=== PATIENT | male | born 1990 | race Caucasian/White ===

== ENCOUNTER 2016-04-23 22:51 | Emergency (ER) | payer OTHER ==
[~2016-04-23] VITALS: Ht 162.6 cm; Wt 67.0 kg
[2016-04-23 22:53] VITALS: BP 144/92; PULSE 80; TEMP 36.8; O2SAT 100; Ht 162.6 cm; Wt 67.0 kg
--- NOTE | 2016-04-24 01:03 | EMERGENCY ROOM VISIT NOTE ---
History First contact with patient: 23:08 Chief Complaint: RASH Stated Complaint: SKIN BLOTCHING, POSSIBLY FROM CHEMICAL EXPOSURE History of Present Illness The patient is a 26 year old male who presents to the Emergency Room with complaints of rash to the tip of his third and fifth finger and distal phalanx today. 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 He is unsure if he came in contact with a certain chemical. He also touched paint today. He has white spots to this area. 2 mm in diameter. Patient denies pain, numbness, tingling, chest pain, dyspnea, fever, chills. No new foods soaps or detergents. Review of Systems See HPI for pertinent positives & negatives. A total of 10 systems reviewed and were otherwise negative. Past Medical/Surgical History none Social History Smoking Status: Never Smoker Smokeless Tobacco Use: No Drug Use: none Occupation Status: [employer] student Physical Exam Vital Signs Date Time Temp Pulse Resp B/P Pulse Ox O2 Delivery O2 Flow Rate FiO2 04/23/16 22:53 36.8 80 19 144/92 100 Room Air Pain Rating (0-10): 0 Physical Exam VITALS: Vitals are noted on the nurse's note and reviewed by myself. Vital signs stable. GENERAL: Pleasant anxious-appearing male, in no acute distress, nondiaphoretic, well-developed well-nourished. SKIN: Capillary reflex less than 2 seconds. Left hand third and fifth digits distal aspect with 2 mm of white discoloration that was mostly removed using an alcohol wipe HEENT: Normocephalic. PERRLA. EOMI. Nares patent. Mucous membranes moist. MUSCULOSKELETAL: No gross musculoskeletal defects. NEURO: Patient was alert and oriented to person place and time. Normal sensation to light and sharp touch. No focal neurological deficits. Medical Decision & Procedures ED Course Prior records/ancillary studies reviewed. Triage Nursing notes reviewed. The patient's history was concerning for a rash. Differential diagnosis: Etiologies such as contact dermatitis, chemical exposure, paint, viral exanthem , urticaria, allergic reaction, Humphreys-Erik syndrome, toxic epidermal necrolysis, erythema multiforme, cellulitis, scabies, HSV, varicella, zoster, eczema, staph scalded skin syndrome, fungal infection, as well as others were entertained. Physical examination: As above ER treatment provided: Alcohol wipe On reassessment the patient felt better. Diagnostic interpretation by me: Deferred The etiology for the patient's rash appears to be consistent with white material to the distal fingers. Most of this was removed using an alcohol wipe. Patient was advised follow-up with health services on Thursday for recheck or here in the ER sooner if this spreads, pain, tingling, worsening signs or symptoms or as needed. Patient works in a lab with multiple chemicals. He states he always wears glasses and does not feel that he was exposed to a heavy amount of chemicals. He is unsure though if there was chemicals on the suit that he was wearing. I feel like this is less likely as there is minimal distribution of the white discoloration and that it was also removed using an alcohol wipe. He was advised to return to the ER for worsening signs or symptoms or as needed. By the evaluation outlined above emergent etiologies such as Humphreys-Erik syndrome, toxic epidermal necrolysis, erythema multiforme, cellulitis, scabies, HSV, varicella, zoster, staph scalded skin syndrome, urticaria, allergic reaction, as well as others were deemed relatively unlikely. The pt informed about the findings as listed above. All questions were answered and pleased with the treatment. Return instructions were outlined and the patient was discharged in stable condition. Referral: The patient was referred back to their primary care physician for follow-up in 2 -3 days for a recheck of the current condition. Medical Decision As above Impression Primary Impression: Rash Departure Information Dispostion Home / Self-Care Condition FAIR Forms WORK / SCHOOL INSTRUCTIONS, HOME CARE DOCUMENTATION FORM, IMPORTANT VISIT INFORMATION Patient Instructions My [facility] Additional Instructions Avoid exposure to any chemicals. Monitor the area. Follow-up health services in 2 days for recheck. Return to ER sooner for spreading of rash, fevers, pain, worsening signs or symptoms or as needed.
== END 2016-04-23 23:41 | disposition home or self-care (01) ==
LOC: C.EDB 22:52 → C.EDC 23:41
DX: R21 Rash and other nonspecific skin eruption (principal)

== ENCOUNTER 2016-09-08 08:44 | Emergency (ER) | payer OTHER ==
[~2016-09-08] VITALS: Ht 162.6 cm; Wt 67.2 kg
[2016-09-08 08:53] VITALS: TEMP 36.7; Ht 162.6 cm; Wt 67.2 kg
[2016-09-08] MEDS ORDERED: LORAZEPAM 1 MG TAB SL STA (09:13)
--- NOTE | 2016-09-08 09:14 | EMERGENCY ROOM VISIT NOTE ---
History Report prepared by Margarita: Mildred Mcdonald Under the Supervision of: Dr. Antonio Gutierrez D.O. First contact with patient: 08:59 Chief Complaint: MENTAL HEALTH EVALUATION Stated Complaint: SUICIDAL THOUGHTS History of Present Illness The patient is a 26 year old male who presents to the Emergency Room for a mental health evaluation. The patient states that for the past few weeks he has been experiencing worsening suicidal ideation. The patient states that he is currently thinking of a plan and would like inpatient help before he acts on the plan. The patient has a history of depression that began about 2 years ago after he had some dating issues. He has attempted suicided 3 times using a knife. He notes he does have a knife at home. The patient states that he is alone a lot recently and this is causing his mind to wander and his depression to worsen. The past month is when he began to notice the depression worsening. The patient denies any particular event that caused the depression to worsen. He states that he has been off his medications since the beginning of the year due to him thinking he was doing better and did not need them anymore. The patient was on Zoloft and another medication. The patient currently is in group therapy. He saw his therapist . He denies any other medical problems. The patient states that his last inpatient treatment was in [place] in October. He was still on his medication at that time. Source of History: patient Onset: few weeks [employer] Position: other (global) Quality: other (mental health evaluation) Timing: worsening Note: The patient admits to suicidal ideation. He admits to beginning to form a plan. The patient denies any other medical problems. Review of Systems See HPI for pertinent positives & negatives. A total of 10 systems reviewed and were otherwise negative. Past Medical & Surgical Medical Problems: (1) Depression Family History Family cardiac history Social History Smoking Status: Never Smoker Smokeless Tobacco Use: No Alcohol Use: none Drug Use: none Marital Status: single Housing Status: lives alone Occupation Status: [employer] Current/Historical Medications No Active Prescriptions or Reported Meds Allergies Coded Allergies: Cefaclor (Verified Allergy, Unknown, vomiting, 09/08/16) Physical Exam Vital Signs Date Time Temp Pulse Resp B/P (MAP) Pulse Ox O2 Delivery O2 Flow Rate FiO2 09/08/16 11:40 58 16 130/90 99 Room Air 09/08/16 08:53 36.7 67 18 139/97 99 Room Air Physical Exam GENERAL: Patient is awake, alert, mildly anxious but comfortable appearing. EYES: The conjunctivae are clear. The pupils are round and reactive. EARS, NOSE, MOUTH AND THROAT: The nose is without any evidence of any deformity. Mucous membranes are moist tongue is midline NECK: The neck is nontender and supple. RESPIRATORY: Normal respiratory effort is noted there is no evidence of wheezing rhonchi or rales CARDIOVASCULAR: Regular rate and rhythm noted there no murmurs rubs or gallops normal S1 normal S2 GASTROINTESTINAL: The abdomen is soft. Bowel sounds are present in all quadrants. Abdomen is nontender MUSCULOSKELETAL/EXTREMITIES: There is no evidence of gross deformity full range of motion is noted in the hips and shoulders SKIN: There is no obvious evidence of any rash. There are no petechiae, pallor or cyanosis noted. NEUROLOGIC: Patient is awake alert and oriented x3 strength is symmetric patellar reflexes are 2+ bilaterally PSYCH: Affect flat, makes poor eye contact. Patient's speech is normal. He currently admits to suicidal ideation with plan to cut himself. Medical Decision & Procedures Laboratory Results 09/08/16 09:28 Red Blood Count 6.07, Mean Corpuscular Volume 86.3, Mean Corpuscular Hemoglobin 29.7, Mean Corpuscular Hemoglobin Concent 34.4, Mean Platelet Volume 9.1, Neutrophils (%) (Auto) 43.3, Lymphocytes (%) (Auto) 43.4, Monocytes (%) (Auto) 9.5, Eosinophils (%) (Auto) 2.4, Basophils (%) (Auto) 0.4, Neutrophils # (Auto) 3.39, Lymphocytes # (Auto) 3.40, Monocytes # (Auto) 0.74, Eosinophils # (Auto) 0.19, Basophils # (Auto) 0.03 09/08/16 09:28 Test 09/08/16 09:28 09/08/16 09:40 White Blood Count 7.83 K/uL (4.8-10.8) Red Blood Count 6.07 M/uL (4.7-6.1) Hemoglobin 18.0 g/dL (14.0-18.0) Hematocrit 52.4 % (42-52) Mean Corpuscular Volume 86.3 fL (80-100) Mean Corpuscular Hemoglobin 29.7 pg (25-34) Mean Corpuscular Hemoglobin Concent 34.4 g/dl (32-36) Platelet Count 267 K/uL (130-400) Mean Platelet Volume 9.1 fL (7.4-10.4) Neutrophils (%) (Auto) 43.3 % Lymphocytes (%) (Auto) 43.4 % Monocytes (%) (Auto) 9.5 % Eosinophils (%) (Auto) 2.4 % Basophils (%) (Auto) 0.4 % Neutrophils # (Auto) 3.39 K/uL (1.4-6.5) Lymphocytes # (Auto) 3.40 K/uL (1.2-3.4) Monocytes # (Auto) 0.74 K/uL (0.11-0.59) Eosinophils # (Auto) 0.19 K/uL (0-0.5) Basophils # (Auto) 0.03 K/uL (0-0.2) RDW Standard Deviation 41.7 fL (36.4-46.3) RDW Coefficient of Variation 13.2 % (11.5-14.5) Immature Granulocyte % (Auto) 1.0 % Immature Granulocyte # (Auto) 0.08 K/uL (0.00-0.02) Anion Gap 7.0 mmol/L (3-11) Est Creatinine Clear Calc Drug Dose 83.8 ml/min Estimated GFR () 105.3 Estimated GFR (Non- 90.9 BUN/Creatinine Ratio 11.5 (10-20) Calcium Level 8.9 mg/dl (8.5-10.1) Total Bilirubin 0.4 mg/dl (0.2-1) Direct Bilirubin 0.1 mg/dl (0-0.2) Aspartate Amino Transf (AST/SGOT) 23 U/L (15-37) Alanine Aminotransferase (ALT/SGPT) 28 U/L (12-78) Alkaline Phosphatase 70 U/L (45-117) Total Protein 7.6 gm/dl (6.4-8.2) Albumin 4.1 gm/dl (3.4-5.0) Thyroid Stimulating Hormone (TSH) 6.850 uIu/ml (0.300-4.500) Ethyl Alcohol mg/dL < 3.0 mg/dl (0-3) Urine Color DK YELLOW Urine Appearance CLEAR (CLEAR) Urine pH 5.5 (4.5-7.5) Urine Specific [place] 1.029 (1.000-1.030) Urine Protein NEG (NEG) Urine Glucose (UA) NEG (NEG) Urine Ketones TRACE (NEG) Urine Occult Blood NEG (NEG) Urine Nitrite NEG (NEG) Urine Bilirubin NEG (NEG) Urine Urobilinogen NEG (NEG) Urine Leukocyte Esterase NEG (NEG) Urine Opiates Screen NEG (NEG) Urine Methadone, Qualitative NEG (NEG) Urine Barbiturates NEG (NEG) Urine Phencyclidine (PCP) Level NEG (NEG) Ur Amphetamine/Methamphetamine NEG (NEG) MDMA (Ecstasy) Screen NEG (NEG) Urine Benzodiazepines Screen NEG (NEG) Urine Cocaine Metabolite NEG (NEG) Urine Marijuana (THC) NEG (NEG) Laboratory results per my review. Medications Administered Medications (Trade) Dose Ordered Sig/Juan Jose Route Start Time Stop Time Status Last Admin Dose Admin Lorazepam (Ativan Tab) 0.5 mg NOW STAT SL 09/08/16 09:13 09/08/16 09:14 DC 09/08/16 09:38 0.5 MG ED Course 0906: The patient was evaluated in room A6. A complete history and physical examination were performed. 0913: Ativan Tab 0.5 mg IV. 1015: Bed search will begin. 1332: The patient will be transferred to [facility] [place] for inpatient treatment. Medical Decision Differential diagnosis: Etiologies such as mood disorder, infection, hypoglycemia, electrolyte abnormalities, cardiac sources, intracerebral event, toxicologic, neurologic, as well as others were entertained. Medication Reconciliation: I attest that I have personally reviewed the patient' s current medications list. Blood pressure screening: Patient was found to have normal blood pressure on screening and does not require follow-up. The patient is a 26-year-old male who presented to the emergency department for an evaluation of depression and suicidal ideation. The patient states that he has a history of depression and has had problems with suicidal ideation the past. The patient states that his symptoms have become worse recently. The patient was medically cleared in the emergency department. He was evaluated by the mental health delegate. He was felt to be a good candidate for inpatient treatment. Bed search was underway and the patient was accepted at [facility] for inpatient psychiatric care. The patient was agreeable with this plan. Transfer paperwork was filled out by myself. The patient was treated with Ativan in the emergency department. Impression Primary Impression: Depression Additional Impression: Suicidal ideation Scribe Attestation The scribe's documentation has been prepared under my direction and personally reviewed by me in its entirety. I confirm that the note above accurately reflects all work, treatment, procedures, and medical decision making performed by me. Departure Information Dispostion Mental Health Acute Care Prescriptions No Active Prescriptions or Reported Meds Referrals No Doctor, Assigned (PCP) Problem Qualifiers Primary Impression: Depression Depression Type: unspecified Qualified Codes: F32.9 - Major depressive disorder, single episode, unspecified
[2016-09-08 09:57] LABS: BASO % 0.4 %; BASO ABS # 0.03 K/uL (0-0.2); COMPLETE YES; EOS % 2.4 %; HEMATOCRIT 52.4 % (42-52); LYMPH % 43.4 %; MEAN CELL VOLUME 86.3 fL (80-100); MEAN CORPUSCULAR HEMOGLOBIN 29.7 pg (25-34); MEAN CORPUSCULAR HGB CONC 34.4 g/dl (32-36); MEAN PLATELET VOLUME 9.1 fL (7.4-10.4); MONO % 9.5 %; NEUT % 43.3 %; PLATELET COUNT 267 K/uL (130-400); RED BLOOD COUNT 6.07 M/uL (4.7-6.1); WHITE BLOOD COUNT 7.83 K/uL (4.8-10.8)
[2016-09-08 10:00] LABS: URINE APPEARANCE CLEAR (CLEAR); URINE BILIRUBIN NEG (NEG); URINE COLOR DK YELLOW; URINE NITRITE NEG (NEG); URINE PH 5.5 (4.5-7.5); URINE SPECIFIC GRAVITY 1.029 (1.000-1.030); UROBILINOGEN NEG (NEG)
[2016-09-08 10:11] LABS: MANUAL MICROSCOPIC REQUIRED? NO; REVIEW REQ? NO
[2016-09-08 10:14] LABS: CREATININE 1.1 mg/dl (0.60-1.40)
[2016-09-08 10:15] LABS: BUN/CREATININE RATIO 11.5 (10-20); CALCIUM 8.9 mg/dl (8.5-10.1); POTASSIUM 4.2 mmol/L (3.5-5.1)
[2016-09-08 10:25] LABS: THYROID STIMULATING HORMONE 6.85 uIu/ml (0.300-4.500)
[2016-09-08 10:27] LABS: BENZODIAZEPINE, URINE NEG (NEG); COCAINE,URINE NEG (NEG); PHENCYCLIDINE, URINE NEG (NEG)
[2016-09-08 18:39] VITALS: BP 133/78; PULSE 67; O2SAT 100
== END 2016-09-08 18:15 ==
LOC: C.EDB 08:45 → C.EDA 18:15
DX: F32.9 Major depressive disorder, single episode, unspecified (principal); R45.851 Suicidal ideations

== ENCOUNTER 2017-05-17 22:12 | Emergency (ER) | payer OTHER ==
[~2017-05-17] VITALS: Ht 162.6 cm; Wt 71.9 kg
[2017-05-17 22:14] VITALS: TEMP 36.9; Ht 162.6 cm; Wt 71.9 kg
[2017-05-17] MEDS ORDERED: QUET1TAB32 PO (22:27)
[2017-05-17] MEDS ORDERED: LTHSR/300 PO (22:27)
[2017-05-17] MEDS ORDERED: LEVO75TA5 PO (22:27)
[2017-05-17 22:49] LABS: BASO % 0.3 %; BASO ABS # 0.03 K/uL (0-0.2); EOS % 0.8 %; EOS ABS # 0.07 K/uL (0-0.5); HEMOGLOBIN 17.7 g/dL (14.0-18.0); IG# 0.17 K/uL (0.00-0.02); LYMPH % 30.2 %; LYMPH ABS # 2.81 K/uL (1.2-3.4); MEAN CORPUSCULAR HEMOGLOBIN 29.8 pg (25-34); MEAN CORPUSCULAR HGB CONC 34.7 g/dl (32-36); MEAN PLATELET VOLUME 8.8 fL (7.4-10.4); MONO % 9.9 %; MONO ABS # 0.92 K/uL (0.11-0.59); NEUT ABS # 5.32 K/uL (1.4-6.5); PLATELET COUNT 279 K/uL (130-400); RED CELL DISTRIBUTION WIDTH CV 13.5 % (11.5-14.5); RED CELL DISTRIBUTION WIDTH SD 42.2 fL (36.4-46.3); WHITE BLOOD COUNT 9.32 K/uL (4.8-10.8)
[2017-05-17 23:06] LABS: ALBUMIN 4.1 gm/dl (3.4-5.0); CALCIUM 8.7 mg/dl (8.5-10.1); CREATININE 1.07 mg/dl (0.60-1.40)
--- NOTE | 2017-05-17 23:10 | EMERGENCY ROOM VISIT NOTE ---
History Report prepared by Margarita: Adria Quarles Under the Supervision of: Dr. Bia Tse D.O. First contact with patient: 22:51 Chief Complaint: MENTAL HEALTH EVALUATION Stated Complaint: MENTAL HEALTH EVAL History of Present Illness The patient is a 27 year old male who presents to the Emergency Room with complaints of an episode of possible suicidal ideations occurring within the last two weeks. 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 He notes that he completely stopped taking his medication because they make him sleep too much and feel lethargic throughout the day, preventing him from doing his work. He reports that since he stopped taking his medication, he has had trouble sleeping. The patient states that he is in the emergency department tonight because his friends believed that he was suicidal. He notes that he is not suicidal, but reports that he is "isolating himself" because he does not feel like he is a positive influence in other's lives. He reports that he feels as though his friends feel that he is a positive influence, but states that what his friends think is not important because he does not feel the same. He notes that he does not have any current suicidal ideations, but reports that he has had suicidal ideations in the past. The patient states that a few years ago, he had suicidal ideations and held a knife to his wrist. He notes that he had two other suicidal ideations when he was in 7th grade where he held a knife to his throat. He denies having any homicidal ideations and hallucinations as well as headache, change in his bowel movements, as well as any other physical concerns. He reports that he has a therapist and is in group therapy, which has mildly helped. The patient states that he had an ear infection last month that has resolved. Source of History: patient Onset: within the last two weeks Position: other (global) Quality: other (possible suicidal ideations) Timing: other (an episode) Associated Symptoms: No headache Note: The patient states that he is "isolating himself." He denies any current suicidal ideations, homicidal ideations, and hallucinations. He also denies any change in his bowel movements. Review of Systems See HPI for pertinent positives & negatives. A total of 10 systems reviewed and were otherwise negative. Past Medical & Surgical Medical Problems: (1) Depression Family History Heart disease Hypertension Social History Smoking Status: Never Smoker Alcohol Use: none Drug Use: none Marital Status: single Housing Status: lives alone Occupation Status: [employer] student Current/Historical Medications Scheduled Levothyroxine Sodium (Levothyroxine Sodium), 75 MCG PO QAM [place] Carbonate ([place] Carbonate), 900 MG PO HS Quetiapine Fumarate (Seroquel), 50 MG PO HS Allergies Coded Allergies: Cefaclor (Verified Allergy, Unknown, vomiting, 05/17/17) Physical Exam Vital Signs Date Time Temp Pulse Resp B/P (MAP) Pulse Ox O2 Delivery O2 Flow Rate FiO2 05/18/17 01:41 62 16 144/93 98 Room Air 05/17/17 22:14 36.9 74 18 153/104 99 Room Air Physical Exam GENERAL: alert, well appearing, well nourished, no distress, non-toxic EYE EXAM: normal conjunctiva, PERRL and EOM's grossly intact OROPHARYNX: no exudate, no erythema, lips, buccal mucosa, and tongue normal and mucous membranes are moist NECK: supple, no nuchal rigidity, no adenopathy, non-tender LUNGS: Clear to auscultation. Normal chest wall mechanics HEART: no murmurs, S1 normal and S2 normal ABDOMEN: abdomen soft, non-tender, normo-active bowel sounds, no masses, no rebound or guarding. BACK: Back is symmetrical on inspection and there is no deformity, no midline tenderness, no CVA tenderness. SKIN: no rashes and no bruising UPPER EXTREMITIES: upper extremities are grossly normal. LOWER EXTREMITIES: No pitting edema. NEURO EXAM: Normal sensorium, cranial nerves II-XII grossly intact, normal speech, no gross weakness of arms, no gross weakness of legs. PSYCH: No active SI but history of SI, no HI, no hallucinations. Medical Decision & Procedures Laboratory Results 05/17/17 22:27 Red Blood Count 5.93, Mean Corpuscular Volume 86.0, Mean Corpuscular Hemoglobin 29.8, Mean Corpuscular Hemoglobin Concent 34.7, Mean Platelet Volume 8.8, Neutrophils (%) (Auto) 57.0, Lymphocytes (%) (Auto) 30.2, Monocytes (%) (Auto) 9.9, Eosinophils (%) (Auto) 0.8, Basophils (%) (Auto) 0.3, Neutrophils # (Auto) 5.32, Lymphocytes # (Auto) 2.81, Monocytes # (Auto) 0.92, Eosinophils # (Auto) 0.07, Basophils # (Auto) 0.03 05/17/17 22:27 Test 05/17/17 22:25 05/17/17 22:27 Urine Color YELLOW Urine Appearance CLEAR (CLEAR) Urine pH 6.0 (4.5-7.5) Urine Specific [place] 1.015 (1.000-1.030) Urine Protein NEG (NEG) Urine Glucose (UA) NEG (NEG) Urine Ketones NEG (NEG) Urine Occult Blood NEG (NEG) Urine Nitrite NEG (NEG) Urine Bilirubin NEG (NEG) Urine Urobilinogen NEG (NEG) Urine Leukocyte Esterase NEG (NEG) Urine Opiates Screen NEG (NEG) Urine Methadone, Qualitative NEG (NEG) Urine Barbiturates NEG (NEG) Urine Phencyclidine (PCP) Level NEG (NEG) Ur Amphetamine/Methamphetamine NEG (NEG) MDMA (Ecstasy) Screen NEG (NEG) Urine Benzodiazepines Screen NEG (NEG) Urine Cocaine Metabolite NEG (NEG) Urine Marijuana (THC) NEG (NEG) White Blood Count 9.32 K/uL (4.8-10.8) Red Blood Count 5.93 M/uL (4.7-6.1) Hemoglobin 17.7 g/dL (14.0-18.0) Hematocrit 51.0 % (42-52) Mean Corpuscular Volume 86.0 fL (80-100) Mean Corpuscular Hemoglobin 29.8 pg (25-34) Mean Corpuscular Hemoglobin Concent 34.7 g/dl (32-36) Platelet Count 279 K/uL (130-400) Mean Platelet Volume 8.8 fL (7.4-10.4) Neutrophils (%) (Auto) 57.0 % Lymphocytes (%) (Auto) 30.2 % Monocytes (%) (Auto) 9.9 % Eosinophils (%) (Auto) 0.8 % Basophils (%) (Auto) 0.3 % Neutrophils # (Auto) 5.32 K/uL (1.4-6.5) Lymphocytes # (Auto) 2.81 K/uL (1.2-3.4) Monocytes # (Auto) 0.92 K/uL (0.11-0.59) Eosinophils # (Auto) 0.07 K/uL (0-0.5) Basophils # (Auto) 0.03 K/uL (0-0.2) RDW Standard Deviation 42.2 fL (36.4-46.3) RDW Coefficient of Variation 13.5 % (11.5-14.5) Immature Granulocyte % (Auto) 1.8 % Immature Granulocyte # (Auto) 0.17 K/uL (0.00-0.02) Anion Gap 8.0 mmol/L (3-11) Est Creatinine Clear Calc Drug Dose 92.6 ml/min Estimated GFR () 108.1 Estimated GFR (Non- 93.3 BUN/Creatinine Ratio 17.7 (10-20) Calcium Level 8.7 mg/dl (8.5-10.1) Total Bilirubin 0.3 mg/dl (0.2-1) Aspartate Amino Transf (AST/SGOT) 19 U/L (15-37) Alanine Aminotransferase (ALT/SGPT) 28 U/L (12-78) Alkaline Phosphatase 88 U/L (45-117) Total Protein 8.2 gm/dl (6.4-8.2) Albumin 4.1 gm/dl (3.4-5.0) Globulin 4.1 gm/dl (2.5-4.0) Albumin/Globulin Ratio 1.0 (0.9-2) Thyroid Stimulating Hormone (TSH) 4.100 uIu/ml (0.300-4.500) Salicylates Level < 1.7 mg/dl (2.8-20) Acetaminophen Level < 2 ug/ml (10-30) [place] Level < 0.2 mMOL/L (0.6-1.2) Ethyl Alcohol mg/dL < 3.0 mg/dl (0-3) Laboratory results per my review. ED Course 2255: The patient was evaluated in room A6. A complete history and physical exam was performed. 0145: Patient seen and evaluated by Donya from [facility]. Patient does not meet inpatient criteria, and no grounds to 302 the patient. Patient already has a group counselor and therapist whom he sees. Discussed with him concerning symptoms, need for close follow-up with his therapist, possible medication adjustments after they are reinitiated, symptoms to watch and return for, he verbalized understanding was agreeable with plan. Patient cooperative here throughout, I do not feel he is an imminent danger to himself or others at this time. 0221: Upon reevaluation, the patient is feeling better. I discussed the findings and the treatment plan with the patient. He verbalizes agreement and understanding. The patient was discharged home. Medical Decision Differential diagnosis: Etiologies such as mood disorder, infection, hypoglycemia, electrolyte abnormalities, cardiac sources, intracerebral event, toxicologic, neurologic, as well as others were entertained. Blood Pressure Screening Patient's blood pressure: Elevated blood pressure Blood pressure disposition: Elevated BP felt to be situational Impression Primary Impression: Acute anxiety Additional Impression: Depression Scribe Attestation The scribe's documentation has been prepared under my direction and personally reviewed by me in its entirety. I confirm that the note above accurately reflects all work, treatment, procedures, and medical decision making performed by me. Departure Information Dispostion Home / Self-Care Referrals No Doctor, Assigned (PCP) Forms HOME CARE DOCUMENTATION FORM, IMPORTANT VISIT INFORMATION Patient Instructions My [facility] Additional Instructions Please follow-up as directed by the medical case manager with your therapist. Please consider discussion with your doctor of your prior medications however at slightly lower doses. If you have any increased symptoms of feeling sad or nervous, have thoughts again about wanting to hurt yourself, feel you are unable to handle additional stress, you have any other new concerns, please return to the emergency room. Problem Qualifiers Additional Impression: Depression Depression Type: unspecified Qualified Codes: F32.9 - Major depressive disorder, single episode, unspecified
[2017-05-17 23:25] LABS: TOTAL PROTEIN 8.2 gm/dl (6.4-8.2)
[2017-05-18 01:41] VITALS: BP 144/93; PULSE 62; O2SAT 98
== END 2017-05-18 02:31 | disposition home or self-care (01) ==
LOC: C.EDB 22:13 → C.EDA 05-18 02:31
DX: F41.9 Anxiety disorder, unspecified (principal); F32.9 Major depressive disorder, single episode, unspecified; Z82.49 Family history of ischemic heart disease and other diseases of the circulatory system; Z88.1 Allergy status to other antibiotic agents